=== PATIENT | female | born 1975 | race American Indian/Alaskan Native ===

== ENCOUNTER 2016-11-21 21:54 | Outpatient (CLI) | payer SELFPAY ==
[2016-11-21 22:25] VITALS: BP 128/77
[2016-11-21] MEDS ORDERED: LACTATED RINGERS 500 ML IV ONE (23:11)
[2016-11-21] MEDS ORDERED: BRETHINE SUB-Q SCH (23:45)
[2016-11-22 00:06] LABS: Bilirubin,Urine NEG (Negative); Blood,Urine NEG (Negative); Granular Casts,Urine 13 /LPF; Ketones,Urine NEG (Negative); Leukocyte Esterase,Urine TR (Negative); Mucus,Urine FEW /HPF; Nitrite,Urine NEG (Negative); Protein,Urine <15 mg/dL mg/dL (Negative); Urobilinogen,Urine < 2.0 mg/dL (<2.0)
--- NOTE | 2016-11-22 00:28 | Short Stay Summary ---
Short Stay Documentation Date of service: 11/22/16 Narrative H&P: States she has contractions. Her OB is Angel Álvarez. She also complains of diffuse itching. +fm, no LOF or vaginal bleeding. - History Past Medical History: No medical history Past Surgical History: Social history: full code, no smoking, no alcohol abuse, no prescription drug abuse, no IV drug use - Allergies and Medications Current Medications: Allergies No Known Allergies Allergy (Verified 03/10/14 23:10) Home Medications Medication Instructions Recorded Confirmed Last Taken Type Acetaminophen/Codeine [Tylenol #3] 1 tab PO Q6H PRN #10 tab 05/09/16 Unknown Rx Active Medications Terbutaline Sulfate (Brethine) 0.25 mg SUB-Q Q20MIN JUDE Stop: 11/23/16 23:46 - Physical exam General appearance: no acute distress Lungs: Normal air movement Breasts: deferred Female Genitourinary: normal Extremities: no ischemia, No edema - Hospital course Hospital course: Hospital course was unremarkable, cervix was closed/long, FHT's cat 1, occ UC' s. Informed she may take Benadryl for itching however she needs to follow up with her OB immediately to be evaluated for skin conditions that may be fatal in . ACOG FAQs: skin conditions in given and PTL precautions given - Disposition Condition at discharge: Good Disposition: DISCHARGED TO HOME OR SELFCARE - Discharge Diagnoses (1) labor in third trimester Status: Acute (2) Itching Status: Acute Short Stay Discharge Plan Activity: other (No sex, call your MD today for an appointment for evaluation) Weight Bearing Status: Weight Bear as Tolerated Diet: regular Follow up with: KATHI WU MD [Primary Care Provider] - 7 Days
== END 2016-11-22 01:14 | disposition home or self-care (01) ==
LOC: TRG 21:54
PROVIDERS: ATTEND Obstetrics & Gynecology
DX: O47.9 False labor, unspecified (principal); Z3A.00 Weeks of gestation of pregnancy not specified
CPT/HCPCS: 81001